=== PATIENT | male | born 1975 | race Hispanic/Latino ===

== ENCOUNTER 2019-12-31 10:41 | Emergency (ER) | payer OTHER ==
[~2019-12-31] VITALS: Ht 175.3 cm; Wt 131.0 kg
[2019-12-31] MEDS ORDERED: SILVADENE1 % EX (11:47)
[2019-12-31] MEDS ORDERED: ULTRAM50 M1 PO (11:47)
[2019-12-31 12:01] VITALS: BP 153/101
== END 2019-12-31 12:01 | disposition home or self-care (01) | DRG 935 ==
LOC: ED 10:41
PROC: 2W21X4Z Dressing of Face using Bandage (ICD-10-PCS; principal; 2019-12-31)
PROC: 2W28X4Z Dressing of Right Upper Extremity using Bandage (ICD-10-PCS; 2019-12-31)
PROC: 2W22X4Z Dressing of Neck using Bandage (ICD-10-PCS; 2019-12-31)
DX: T20.16XA Burn of first degree of forehead and cheek, initial encounter (principal); T22.131A Burn of first degree of right upper arm, initial encounter; T22.111A Burn of first degree of right forearm, initial encounter; T23.171A Burn of first degree of right wrist, initial encounter; T20.17XA Burn of first degree of neck, initial encounter; X04.XXXA Exposure to ignition of highly flammable material, initial encounter; Y93.89 Activity, other specified; Y92.009 Unspecified place in unspecified non-institutional (private) residence as the place of occurrence of the external cause

== ENCOUNTER 2022-03-25 09:45 | Day surgery (SDC) | payer OTHER ==
[~2022-03-25] VITALS: Ht 175.3 cm; Wt 131.5 kg
[~2022-03-25 09:45] MED LIST: SILVADENE1 % EX; ULTRAM50 M1 PO
[2022-03-25] MEDS ORDERED: PERCOCET 5/321 COMBO PO (11:55)
[2022-03-25 13:10] VITALS: BP 147/96
== END 2022-03-25 13:10 | disposition home or self-care (01) | DRG 355 ==
LOC: ORM 09:45
PROVIDERS: ATTEND Surgery
PROC: 0WUF4JZ Supplement Abdominal Wall with Synthetic Substitute, Percutaneous Endoscopic Approach (ICD-10-PCS; principal; 2022-03-25)
DX: K43.9 Ventral hernia without obstruction or gangrene (principal)
CPT/HCPCS: J0131